=== PATIENT | male | born 2000 | race African-American/Black ===

== ENCOUNTER 2024-09-30 09:34 | Emergency (ER) | payer BC, SELFPAY ==
--- NOTE | ~2024-09-30 | US_ITS ---
EXAMINATION: US SCROTUM HISTORY: left testicular pain and swelling. COMPARISON: There are no prior studies for comparison. FINDINGS: Real-time grayscale ultrasound imaging of the scrotum was performed. Color and spectral Doppler analysis was also performed. RIGHT TESTICLE: The right testis measures 4.4 x 3.2 x 2.9 cm and demonstrates normal homogeneous echotexture. No masses are seen. The right testis demonstrates normal arterial and venous color Doppler and spectral waveforms. RIGHT EPIDIDYMIS: Normal in size, shape, and vascularity. LEFT TESTICLE: The left testis measures 4.2 x 2.5 x 3.6 cm and demonstrates normal homogeneous echotexture. No masses are seen. The left testis demonstrates normal arterial and venous color Doppler and spectral waveforms. LEFT EPIDIDYMIS: Normal in size, shape, and vascularity. There is a 4 mm epididymal head cyst. VARICOCELE: None. HYDROCELE: No significant hydrocele is seen. OTHER COMMENTS: None. US/US scrotum doppler IMPRESSION: 4 mm left epididymal head. Otherwise unremarkable scrotal ultrasound. Electronically signed by: Miguel Olmos MD 09/30/2024 10:38 AM EDT
--- NOTE | ~2024-09-30 | CT_ITS ---
EXAMINATION: CT ABDOMEN PELVIS WITH IV CONTRAST HISTORY: LLQ Pain COMPARISON: There are no prior studies for comparison. TECHNIQUE: CT scan of the abdomen and pelvis was performed following administration of 85 mL Omnipaque 350 using standard departmental protocol. Coronal and sagittal reformatted images were generated and reviewed. Oral contrast material was not administered at the request of the referring physician. This CT exam was performed with one or more of the following dose reduction techniques: automated exposure control, adjustment of the mA and/or kV according to patient size, use of iterative reconstruction technique. DLP: 461 mGy-cm FINDINGS: LOWER CHEST: The visualized lung bases are clear. There is no pleural effusion. CARDIOVASCULATURE: The heart is normal in size. There is no pericardial effusion. LIVER: The liver is normal in size and contour. No liver mass is identified. The hepatic and portal veins are patent. GALLBLADDER / BILE DUCTS: The gallbladder is unremarkable. There is no intra or extrahepatic biliary ductal dilatation. SPLEEN: The spleen is normal in size. No focal splenic lesion is identified. PANCREAS: The pancreas is unremarkable in appearance. ADRENAL GLANDS: Within normal limits. KIDNEYS/RETROPERITONEUM: No renal calculi are identified. There is no hydronephrosis. No renal masses are identified. LYMPH NODES: No abdominal or pelvic lymphadenopathy. VASCULATURE: The abdominal aorta is normal in caliber. MESENTERY/PERITONEUM: No free fluid. No masses. There is no free intraperitoneal gas. STOMACH: The stomach is collapsed, limiting evaluation. SMALL BOWEL: The small bowel is normal in caliber. COLON: The colon is unremarkable. APPENDIX: Normal. URINARY BLADDER/PELVIC ORGANS: The urinary bladder is unremarkable. The prostate is normal in size. BONES / SOFT TISSUES: No suspicious bony or soft tissue abnormalities. CT/CT abdomen pelvis w IV con IMPRESSION: Unremarkable contrast-enhanced CT of the abdomen and pelvis. Electronically signed by: Miguel Olmos MD 09/30/2024 02:14 PM EDT
--- NOTE | ~2024-09-30 | US_ITS ---
EXAMINATION: US SCROTUM HISTORY: left testicular pain and swelling. COMPARISON: There are no prior studies for comparison. FINDINGS: Real-time grayscale ultrasound imaging of the scrotum was performed. Color and spectral Doppler analysis was also performed. RIGHT TESTICLE: The right testis measures 4.4 x 3.2 x 2.9 cm and demonstrates normal homogeneous echotexture. No masses are seen. The right testis demonstrates normal arterial and venous color Doppler and spectral waveforms. RIGHT EPIDIDYMIS: Normal in size, shape, and vascularity. LEFT TESTICLE: The left testis measures 4.2 x 2.5 x 3.6 cm and demonstrates normal homogeneous echotexture. No masses are seen. The left testis demonstrates normal arterial and venous color Doppler and spectral waveforms. LEFT EPIDIDYMIS: Normal in size, shape, and vascularity. There is a 4 mm epididymal head cyst. VARICOCELE: None. HYDROCELE: No significant hydrocele is seen. OTHER COMMENTS: None. US/US scrotum IMPRESSION: 4 mm left epididymal head. Otherwise unremarkable scrotal ultrasound. Electronically signed by: Miguel Olmos MD 09/30/2024 10:38 AM EDT
[2024-09-30 09:39] VITALS: BP 142/51; PULSE 73; RESP 18; TEMP 36.8; O2SAT 99; BMI 29.4
--- NOTE | 2024-09-30 09:39 | ED_ITS ---
HPI - General Adult General Chief complaint: General Medical Stated complaint: Groin pain Time Seen by Provider: 09/30/24 09:37 Source: patient, family and old records reviewed Mode of arrival: ambulatory Limitations: no limitations History of Present Illness ED Provider: KIRILL MENCHACA narrative: 24 yo male healthy no prior surgeries has been working out and noted he thought he pulled this L groin on but now his L testicle is swollen. He notes it is worse when he moves his legs a certain way. He even worked out yesterday but notes it was fine. He has no rash, dysuria, discharge, fevers, n/v/d. Change in stool. He notes it is not worse when he walks. He has no concerning sexual contacts. MD complaint: groin pain Onset (ago): week(s) (1) Location: left (grion) Radiation: non-radiation Severity: moderate Quality: aching Pain Consistency: intermittent Relieving factors: none Exacerbating factors: movement Associated symptoms: denies other symptoms Treatments prior to arrival: none Related Data Previous Rx's ?Medication ?Instructions ?Recorded cyclobenzaprine 10 mg tablet 10 mg PO TID PRN muscle spasm #20 09/30/24 tabs doxycycline hyclate 100 mg capsule 100 mg PO BID 7 days #14 caps 09/30/24 Allergies Allergy/AdvReac Type Severity Reaction Status Date / Time No Known Allergies Allergy Verified 09/30/24 09:40 Review of Systems 2 Review of Systems: Constitutional : No Weight loss, No Fever, No Chills ENT/Mouth : No sore throat, No Rhinorrhea Eyes: No Swelling, No Redness Cardiovascular : No Chest Pain, No SOB, NoEdema Respiratory : No Cough, No Sputum, No Wheezing Gastrointestinal : no Nausea, no Vomiting, no Diarrhea, no abdominal Pain, No Hematochezia, No Melena Genitourinary : No Dysuria, No Urinary Frequency, No Hematuria, No Urgency Musculoskeletal : No joint pain, No Myalgias, No Joint Swelling, pos groin pain Skin : No Skin Lesions, No rash Neuro : No Weakness, No Numbness, No Dizziness, No Headache All other systems reviewed and are negative. [facility] Past Medical History Attestation statement: The following information was validated with the patient. Medical History (Updated 09/30/24 @ 14:23 by Darcy Rubio DO) No pertinent past medical history Social History Social History Alcohol intake: current Alcohol intake frequency: holidays/special occasions only Smoked in Last 30 Days: No Use of substances other than those prescribed or required for medical reasons: Yes Substance Use Type: Marijuana Advance Directives: No Advance Directives Information Provided: Yes Physical Exam ED Vital Signs: Vital Signs - 24 hr 09/30/24 09:39 Temperature 98.2 F Pulse Rate 73 Respiratory Rate 18 Blood Pressure 142/51 H Pulse Oximetry 99 Oxygen Delivery Method Room Air BMI result Body Mass Index 29.4 Appearance: Alert. Oriented X3. No acute distress. Eyes: Pupils equal, round and reactive to light. ENT: Pharynx normal. Neck: Normal inspection. Neck supple. CVS: Normal heart rate and rhythm. Pulses normal. Respiratory: No respiratory distress. Breath sounds normal. Abdomen: Soft and nontender. possible small inguinal hernia felt with cough : no rash, no redness/cellulitis, cord is tender on L side , L testicle upper area feels swollen and painful Skin: Skin warm and dry. Normal skin color. Normal skin turgor. Extremities: No lower extremity edema. No calf ttp Neuro: Oriented X 3. No motor deficit. No sensory deficit. CN2-12 intact Course Course Course Narrative: This is a rapid medical exam performed by Crystal Santa NP: Additional HPI, ROS, PE not included below will be deferred to primary provider. Patient is a 24-year-old male presenting with left groin pain and left testicular swelling since Friday. States he was bench pressing, lifting heavier than normal when symptoms began. Went to urgent care, told he had a groin strain. Area not visualized in triage due to privacy concerns. Plan: UA, CT NG, U/S Reevaluation(s) Reevaluation #1: given US no cause for pain will obtain CT scan for hernia/diverticulitis Medical Decision Making Medical Decision Making MDM Narrative: 24 yo male with groin pain but no associated GI or symptoms and abomen is benign at this time will obtain labs, UA, US to evaluate scrotum as well as possible inguinal hernia. No ischemic symptoms present. Differential Diagnosis Differential Diagnoses: The differential diagnosis associated with the presentation includes STI, orchitis, inguinal hernia, strain Admission/Observation Consideration of admission/observation: Escalation of care including admission/observation considered not toxic, eating and drinking stable for DC will start on doxy in case of inflammation Lab Data MDM Lab Attestation statement: I reviewed the patient's lab results. 09/30/24 09:59 09/30/24 09:59 Labs: Lab Results 09/30/24 09/30/24 Range/Units 09:59 10:03 WBC 10.0 (4.8-10.8) X10*3/uL RBC 5.04 (4.60-5.80) X10*6/uL Hgb 15.5 (14.0-18.0) g/dl Hct 41.6 L (42.0-52.0) % MCV 82.5 (80.0-98.0) fL MCH 30.8 (27.0-33.0) pg MCHC 37.3 H (31.0-36.0) g/dl RDW 13.3 (11.0-16.0) % Plt Count 258 (160-400) X10*3/uL MPV 9.1 L (9.4-12.4) fL Immature Gran % (Auto) 0.4 (0.0-0.4) % Neut % (Auto) 69.0 (45-73) % Lymph % (Auto) 21.4 (20-40) % Shelby % (Auto) 8.5 (2-11) % Eos % (Auto) 0.4 (0-4) % Baso % (Auto) 0.3 (0-2) % Lymph # (Auto) 2.2 (1.2-4.9) X10*3/uL Shelby # (Auto) 0.9 (0.1-1.2) X10*3/uL Eos # (Auto) 0.0 (0.0-0.4) X10*3/uL Baso # (Auto) 0.0 (0.0-0.2) X10*3/uL Abs Immat Gran (auto) 0.04 H (0.00-0.03) X10*3/uL Absolute Neuts (auto) 6.9 (2.0-8.3) x10*3/uL Absolute Nucleated RBC 0.000 (0.0-0.012) X10*3/uL Nucleated RBC % (auto) 0.0 (0.0-0.2) /100WBC Sodium 140 (135-145) mmol/L Potassium 4.6 (3.3-5.1) mmol/L Chloride 106 (96-108) mmol/L Carbon Dioxide 27 (22-29) mmol/L Anion Gap 12 (12-20) BUN 13 (9-16) mg/dL Creatinine 1.33 (0.5-1.4) mg/dL Estim Creat Clear Calc 97.2 Estimated GFR > 60 Random Glucose 93 (60-115) mg/dL Calcium 9.1 (8.4-10.2) mg/dL Total Bilirubin 0.9 (0.0-1.0) mg/dL Direct Bilirubin 0.3 (0.0-0.5) mg/dL AST 37 (5-37) U/L ALT 25 (0-40) U/L Alkaline Phosphatase 158 H (39-117) U/L Total Protein 7.2 (6.5-8.0) g/dL Albumin 4.4 (3.5-5.0) g/dL Urine Color Yellow Urine Appearance Clear Urine pH 7.0 (5.0-9.0) Ur Specific Wilmore 1.025 (1.005-1.025) Urine Protein Negative (Neg-Trace) mg/dL Urine Glucose (UA) Negative (Negative) mg/dL Urine Ketones Trace (Negative) mg/dL Urine Blood Negative (Negative) Urine Nitrite Negative (Negative) Ur Leukocyte Esterase Negative (Negative) Chlam trachomat DNA PCR NOT DETECTED (Not Detect.) N.gonorrhoeae DNA (PCR) NOT DETECTED (Not Detect.) Independent Interpretation I performed an independent interpretation of an: Ultrasound (no cause for pain) and CT Scan (normal ) Radiology Impression Discussion of test interpretation with radiology: I have reviewed the radiologist's reading. Independent Historian Clinical information obtained from an independent historian. History obtained from or confirmed by: Parent Prescription Management I considered prescription management with: Antibiotic and Other Discharge Plan Discharge Clinical Impression: Left groin pain, Pain in left testicle Patient Disposition: Home, Self-Care Instructions: Testicle Pain (ED) Additional Instructions: urine labs STI testing for gonorrhea normal US shows epidymal cyst but no other lesions CT scan shows no hernia is normal at this time rest for 3 days no gym take antibiotics in case of low grade infection in spermatic cord return for any worsening symptoms or concerns. On doxycycline, do not take pills immediately before going to bed and swallow pills with plenty of water. Avoid direct sunlight, iron, antacids, and Pepto Bismol. Call your provider if you develop new ringing in your ears, new problems hearing, dizziness, difficulty swallowing, rash, abdominal discomfort, nausea, or diarrhea.? US/US scrotum IMPRESSION: 4 mm left epididymal head. Otherwise unremarkable scrotal ultrasound. CT/CT abdomen pelvis w IV con IMPRESSION: Unremarkable contrast-enhanced CT of the abdomen and pelvis. Prescriptions: New cyclobenzaprine 10 mg tablet 10 mg PO TID PRN (Reason: muscle spasm) Qty: 20 0RF doxycycline hyclate 100 mg capsule 100 mg PO BID 7 Days Qty: 14 0RF Stand Alone Forms: Work/School Release Print Language: Spanish
[2024-09-30 10:03] LABS: MANUAL DIFF FLAG NO
[2024-09-30 10:04] LABS: Basophils Percent Auto 0.3 % (0-2); Eosinophils Percent Auto 0.4 % (0-4); Hematocrit 41.6 % (42.0-52.0); Hemoglobin 15.5 g/dl (14.0-18.0); Imm Gran Abs Auto 0.04 X10*3/uL (0.00-0.03); Imm Gran Pct Auto 0.4 % (0.0-0.4); Lymphocytes Absolute Auto 2.2 X10*3/uL (1.2-4.9); Lymphocytes Percent Auto 21.4 % (20-40); Mean Corpuscular HGB Conc 37.3 g/dl (31.0-36.0); Mean Corpuscular Hemoglobin 30.8 pg (27.0-33.0); Mean Corpuscular Volume 82.5 fL (80.0-98.0); Mean Platelet Volume 9.1 fL (9.4-12.4); Monocytes Absolute Auto 0.9 X10*3/uL (0.1-1.2); Monocytes Percent Auto 8.5 % (2-11); Neutrophils Absolute Auto 6.9 x10*3/uL (2.0-8.3); Platelet Count 258 X10*3/uL (160-400); Red Blood Count 5.04 X10*6/uL (4.60-5.80); Red Cell Distribution Width 13.3 % (11.0-16.0)
[2024-09-30 10:11] LABS: Appearance Urine Clear; Color Urine Yellow; Glucose Urine UA Negative (Negative); Leukocyte Esterase Urine Negative (Negative); Nitrite Urine Negative (Negative); Specific Gravity - Urine 1.025 (1.005-1.025); Urine Blood Negative (Negative); Urine Ketones Trace mg/dL (Negative); Urine Protein Negative (Neg-Trace)
[2024-09-30 10:20] LABS: Alanine Aminotransferase 25 U/L (0-40); Albumin Level 4.4 g/dL (3.5-5.0); Alkaline Phosphatase 158 U/L (39-117); Anion Gap 12 (12-20); Aspartate Amino Transferase 37 U/L (5-37); Bilirubin Direct 0.3 mg/dL (0.0-0.5); Bilirubin Total 0.9 mg/dL (0.0-1.0); Blood Urea Nitrogen 13 mg/dL (9-16); Calcium 9.1 mg/dL (8.4-10.2); Carbon Dioxide 27 mmol/L (22-29); Chloride 106 mmol/L (96-108); Creatinine Clr Calc Pharmacy 97.2; Estimated Glomerular Filt Rate > 60; Glucose Random 93 mg/dL (60-115); Potassium 4.6 mmol/L (3.3-5.1); Sodium 140 mmol/L (135-145); Total Protein 7.2 g/dL (6.5-8.0)
--- OUTSIDE RECORDS SUMMARY | 2024-09-30 10:57 | XMS_ITS | Clinical Summary ---
Author Organization [facility] ity Address [address] [place] [address] Care Team Providers Care Title 1 Tutor Name Role Phone Unavailable Primary Care Provider Unavailabl e Social History Tobacco Use Types Packs/Day Years Used Date Smoking Tobacco: Never Assessed Sex and Gender Information Value Date Recorded Sex Assigned at Not on file Legal Sex Male 10:49 AM EST Gender Identity Not on file Sexual Orientation Not on file Plan of Treatment Health Maintenance Due Date Last Done Comments HPV Vaccines (1 - Male 3-dos e series) 2014 DTaP,Tdap,and Td Vaccines (1 - Tdap) 2018 Hepatitis B Vaccines (1 of 3 - 19+ 3-dose series) 2018 COVID-19 Vaccine ( - 2023-2 5 season) 2024 Influenza Vaccine (Season Ended) 2025 HIB Vaccines Aged Out No longer eligi ble based on patient's age to complete this topic Hepatitis A Vaccines Aged Out No long er eligible based on patient's age to complete this topic IPV Vaccines Aged Out No longer eligi ble based on patient's age to complete this topic MMR Vaccines Aged Out No longer eligi ble based on patient's age to complete this topic Meningococcal ACWY Vaccine Aged Out N o longer eligible based on patient's age to complete this topic Meningococcal B Vaccine Aged Out No l onger eligible based on patient's age to complete this topic Pneumococcal Vaccine: Pediat rics (0 to 5 Years) and At-Risk Patients (6 to 64 Years) Aged Out No longer eligible b ased on patient's age to complete this topic RSV Immunization Patients Un emily 20 months Aged Out No longer eligible b ased on patient's age to complete this topic Varicella Vaccines Aged Out No longer eligible based on patient's age to complete this topic
[2024-09-30 12:17] LABS: CT PCR NOT DETECTED (Not Detect.); NG PCR NOT DETECTED (Not Detect.)
[2024-09-30 14:39] VITALS: BP 115/58; PULSE 59; RESP 16; TEMP 36.5; O2SAT 100
[2024-09-30 14:48] VITALS: BP 115/58; PULSE 59; RESP 16; TEMP 36.5; O2SAT 100
== END 2024-09-30 14:49 | disposition home or self-care (01) ==
PROVIDERS: Registered Nurse Emergency; Emergency Provider Emergency Medicine
DX: R10.32 Left lower quadrant pain (principal); N50.812 Left testicular pain
CPT/HCPCS: 36415; 74177; 76870; 80048; 80076; 81003; 85025; 87491; 87591; 93975; 99284

== ENCOUNTER → 2024-09-30 09:40 | Outpatient (BNV) | payer BC, SELFPAY | PROVIDERS: Emergency Provider Emergency Medicine; Visit Provider Radiology Diagnostic Radiology | DX: R10.32 Left lower quadrant pain (principal); N50.812 Left testicular pain; N49.2 Inflammatory disorders of scrotum | CPT/HCPCS: 74177; 76870; 93975 ==

== ENCOUNTER 2024-10-19 06:17 | Inpatient (IN) | payer BC, SELFPAY ==
[2024-10-19] VITALS (10 sets, daily range): BP systolic 117–140; BP diastolic 57–68; PULSE 83–97; RESP 12–20; TEMP 36.4–37.2; O2SAT 96–100; BMI 28.2
--- NOTE | ~2024-10-19 | US_ITS ---
EXAMINATION: US SCROTUM HISTORY: Left testicular pain, swelling. COMPARISON: Comparison is made with the prior examination dated 09/30/2024. FINDINGS: Real-time grayscale ultrasound imaging of the scrotum was performed. Color and spectral Doppler analysis was also performed. RIGHT TESTICLE: The right testis measures 5.0 x 2.7 x 3.2 cm and demonstrates normal homogeneous echotexture. No masses are seen. The right testis demonstrates normal arterial and venous color Doppler and spectral waveforms. RIGHT EPIDIDYMIS: Normal in size, shape, and vascularity. LEFT TESTICLE: The left testis measures 4.5 x 3.5 x 3.9 cm and demonstrates normal homogeneous echotexture. No masses are seen. The left testis demonstrates normal arterial and venous spectral waveforms, but appears slightly hypervascular. LEFT EPIDIDYMIS: The left epididymis is enlarged and hyperemic cyst with epididymitis. VARICOCELE: None. HYDROCELE: No significant hydrocele is seen. OTHER COMMENTS: None. US/US scrotum IMPRESSION: Findings consistent with left epididymoorchitis. Electronically signed by: Miguel Olmos MD 10/19/2024 09:20 AM EDT
--- NOTE | ~2024-10-19 | US_ITS ---
EXAMINATION: US SCROTUM HISTORY: Left testicular pain, swelling. COMPARISON: Comparison is made with the prior examination dated 09/30/2024. FINDINGS: Real-time grayscale ultrasound imaging of the scrotum was performed. Color and spectral Doppler analysis was also performed. RIGHT TESTICLE: The right testis measures 5.0 x 2.7 x 3.2 cm and demonstrates normal homogeneous echotexture. No masses are seen. The right testis demonstrates normal arterial and venous color Doppler and spectral waveforms. RIGHT EPIDIDYMIS: Normal in size, shape, and vascularity. LEFT TESTICLE: The left testis measures 4.5 x 3.5 x 3.9 cm and demonstrates normal homogeneous echotexture. No masses are seen. The left testis demonstrates normal arterial and venous spectral waveforms, but appears slightly hypervascular. LEFT EPIDIDYMIS: The left epididymis is enlarged and hyperemic cyst with epididymitis. VARICOCELE: None. HYDROCELE: No significant hydrocele is seen. OTHER COMMENTS: None. US/US scrotum IMPRESSION: Findings consistent with left epididymoorchitis. Electronically signed by: Miguel Olmos MD 10/19/2024 09:20 AM EDT
--- OUTSIDE RECORDS SUMMARY | 2024-10-19 06:51 | XMS_ITS | Clinical Summary ---
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 Emergency [address] [place] [address] Discharge Disposition: Home or Self Care from Last 3 Months Social History Tobacco Use Types Packs/Day Years Used Date Smoking Tobacco: Never Smokeless Tobacco: Never Tobacco Cessation:Counseling Given: Not Answered Sex and Gender Information Value Date Recorded Sex Assigned at Not on file Legal Sex Male 10:49 AM EST Gender Identity Not on file Sexual Orientation Not on file Obstetrics History Last Filed Vital Signs Vital Sign Reading Time Taken Comments Blood Pressure 120/59 10/18/2024 9:38 PM EDT Pulse 77 10/18/2024 9:38 PM EDT Temperature 36.8 ??C (98.2 ??F) 10/18/2024 9:38 PM ED T Respiratory Rate 16 10/18/2024 9:38 PM EDT Oxygen Saturation 99% 10/18/2024 9:38 PM EDT Inhaled Oxygen Concentration - - Weight 91.2 kg (201 lb) 10/18/2024 9:38 PM EDT Height 180.3 cm (5' 11 ) 10/18/2024 9:38 PM EDT Body Mass Index 28.03 10/18/2024 9:38 PM EDT Plan of Treatment Health Maintenance Due Date Last Done Comments HPV Vaccines (1 - Male 3-dos e series) 2014 DTaP,Tdap,and Td Vaccines (1 - Tdap) 2018 Hepatitis B Vaccines (1 of 3 - 19+ 3-dose series) 2018 COVID-19 Vaccine (2023-2 5 season) 2024 Influenza Vaccine (Season Ended) [...] on patient's age to complete this topic Care Teams Cattle Sprayer Relationship Specialty Start Date End Date Physician, No Pcp PCP - General 10/18/24
--- NOTE | 2024-10-19 08:15 | ED_ITS ---
HPI - Male Genitourinary General Chief complaint: Urogenital-Male Stated complaint: groin pain Time Seen by Provider: 10/19/24 07:59 Source: patient and RN notes reviewed Mode of arrival: ambulatory Limitations: no limitations History of Present Illness ED Provider: Priscilla Woodall PA-C [facility] Narrative: This is a 24-year-old male, with no known medical problems, who presents emergency department with concerns of left testicular pain and swelling for the last 2-3 days. Patient was seen here several weeks ago for similar symptoms where he had an ultrasound which revealed a 4 mm left epididymal head, otherwise unremarkable. He also had a CAT scan which was unremarkable. They started him on doxycycline which he states he was taking however states that when he stops taking this, he felt as though his symptoms were starting to return. He denies any fevers or chills. No chest pain or shortness for breath. No abdominal pain or nausea. Denies any dysuria, urinary frequency, urgency. He took ibuprofen last night which provided him with some relief. He is sexually active, denies chance of STIs, also denies any history of anal sex. No other complaints or concerns at this time. MD Complaint: testicle pain and testicle swelling Onset (ago): day(s) Duration: constant and progressively worsening Location: left testicle Radiation: left inguinal region Severity: moderate Severity scale (1-10): 7 Quality: aching Relieving factors: rest Exacerbating factors: palpation Associated symptoms: Reports denies other symptoms Related Data Sexually active: Yes Previous Rx's ?Medication ?Instructions ?Recorded cyclobenzaprine 10 mg tablet 10 mg PO TID PRN muscle spasm #20 09/30/24 tabs doxycycline hyclate 100 mg capsule 100 mg PO BID 7 days #14 caps 09/30/24 Allergies Allergy/AdvReac Type Severity Reaction Status Date / Time No Known Allergies Allergy Verified 10/19/24 06:24 Review of Systems 2 Review of Systems: Yes all other systems are reviewed and are negative Constitutional: Constitutional: Reports as per [facility] Past Medical History Medical History (Updated 10/19/24 @ 13:24 by EARNEST Ahuja) No pertinent past medical history Social History Social History Alcohol intake: current Alcohol intake frequency: holidays/special occasions only Smoked in Last 30 Days: No Use of substances other than those prescribed or required for medical reasons: Yes Substance Use Type: Marijuana Advance Directives: No Advance Directives Information Provided: No Physical Exam 2 Vital Signs: Vital Signs: Last Vital Signs Temp 97.6 F 10/19/24 11:12 Pulse 83 10/19/24 12:01 Resp 12 10/19/24 12:01 BP 122/64 10/19/24 12:01 Pulse Ox 100 10/19/24 12:01 O2 Del Method Room Air 10/19/24 12:01 BMI result Body Mass Index 28.2 Const: General: cooperative, comfortable and no acute distress O rientation/consciousness: patient oriented x3 Limitations: no limitations HEENT: Head: Yes normal to inspection, Yes normocephalic and Yes atraumatic Ears: hearing grossly normal bilaterally General nose exam: Normal external nose present Face and sinus: Yes normal facial exam Mouth: Normal oral and palatal mucosa present, oropharynx normal and moist mucous membranes Throat: Yes posterior oropharynx normal Eyes: General: appearance normal, both eyes and all related structures E yelids: Yes eyelids normal Conjunctivae: conjunctivae normal Sclerae: s clerae normal Pupils: Equal, round and reactive pupils present EOM: EOMs intact bilaterally Neck: Neck: Yes normal visual inspection, Yes full ROM and Yes no lymphadenopathy Lymphatic: no lymphadenopathy noted Chest: Chest palpation & inspection: normal inspection of the chest Resp: Effort & Inspection: normal respiratory effort and able to speak in complete sentences Auscultation: clear to auscultation bilaterally, no crackles, no rales, no rhonchi and no wheezes Cardio: Rate: regular rate Rhythm: regular rhythm Heart sounds: S1 normal heart sound present and S2 normal heart sound present GI: Other: Abdomen is soft and nontender. Inspection: Yes normal to inspection : Other: Testicular exam performed with Amie certified composites technician present at all times. Left testy is indurated, hard, and tender to palpation, slight erythema and warmth. No identifiable abscess palpated. No tenderness extending into the perineum or edema extending into this region. Right testis is soft, nontender. No overlying rashes. Skin: General skin exam: no rashes or lesions noted Trauma: no lacerations or abrasions Wounds: no wounds Neuro: General: patient oriented x3 and moves all extremities Cranial nerves: Yes Equal, round and reactive pupils present Extrem: General: Yes normal to inspection Right upper extremity: normal to inspection Left upper extremity: normal to inspection Right lower extremity: normal to inspection Left lower extremity: normal to inspection Medications Administered Discontinued Medications Generic Name Dose Route Start Last Admin Trade Name Madeleine PRN Reason Stop Dose Admin Acetaminophen 975 mg 10/19/24 10:22 10/19/24 10:45 Acetaminophen 325 Mg Tablet PO 10/19/24 10:23 975 mg ONCE ONE Administration Ceftriaxone Sodium 1 gm 10/19/24 11:36 10/19/24 11:50 Ceftriaxone Sodium 1 Gm Vial IVPUSH 10/19/24 11:37 1 gm ONCE ONE Administration Sodium Chloride 2,259 mls @ 2,259 mls/hr 10/19/24 11:36 10/19/24 11:53 Ns IV 10/19/24 12:35 2,259 mls/hr .Q1H STA Administration Medical Decision Making Medical Decision Making [facility] Narrative: This is a 24-year-old male who presents emergency department with complaints of left testicular pain and swelling for the last several days. On arrival, vital signs within normal limits. He is speaking full sentences under no acute distress. Patient was seen here on September 30, 2024 where he had a 4 mm epididymal head, and a negative CAT scan, and was started on doxycycline. Patient with left-sided testicular induration, and erythema, no significant cellulitis however very firm and tender to palpation. Patient was not evaluated until approximately 9:00 a.m. this morning. He is afebrile, nontoxic appearing, vital signs within normal limits. Will obtain ultrasound and obtain urinalysis. Course: Ultrasound revealing left epididymoorchitis. I discussed this with Dr. Mckeon. I will also order baseline labs to assess for leukocytosis or any electrolyte derangement. Patient remains to be comfortable. 1115- labs returned, [place] [address], with left shift, chemistry revealing slight elevation in T bili at 1.5, alk phos 143, urine does not appear to be infected. Given significant elevation in white blood cell count, I reconsulted with Dr. Mckeon, lactic, blood cultures, IV fluids, and ceftriaxone 1 g IV ordered. 1300 - Dr. Mckeon recommends admission with IV antibiotics, will discussed with hospitalist for transfer of care. Differential Diagnosis Differential Diagnoses: The differential diagnosis associated with the presentation includes Epididymitis, testicular torsion, STI Lab Data [facility] Lab Attestation statement: I reviewed the patient's lab results. See MDM and course 10/19/24 11:09 10/19/24 11:09 Labs: Lab Results 10/19/24 10/19/24 Range/Units 11:09 11:42 WBC 24.9 H (4.8-10.8) X10*3/uL RBC 4.68 (4.60-5.80) X10*6/uL Hgb 14.4 (14.0-18.0) g/dl Hct 38.8 L (42.0-52.0) % MCV 82.9 (80.0-98.0) fL MCH 30.8 (27.0-33.0) pg MCHC 37.1 H (31.0-36.0) g/dl RDW 13.2 (11.0-16.0) % Plt Count 260 (160-400) X10*3/uL MPV 8.8 L (9.4-12.4) fL Immature Gran % (Auto) 0.5 H (0.0-0.4) % Neut % (Auto) 85.9 H (45-73) % Lymph % (Auto) 5.3 L (20-40) % [place] % (Auto) 8.2 (2-11) % Eos % (Auto) 0.0 (0-4) % Baso % (Auto) 0.1 (0-2) % Lymph # (Auto) 1.3 (1.2-4.9) X10*3/uL [place] # (Auto) 2.1 H (0.1-1.2) X10*3/uL Eos # (Auto) 0.0 (0.0-0.4) X10*3/uL Baso # (Auto) 0.0 (0.0-0.2) X10*3/uL Abs Immat Gran (auto) 0.13 H (0.00-0.03) X10*3/uL Absolute Neuts (auto) 21.4 H (2.0-8.3) x10*3/uL Absolute Nucleated RBC 0.000 (0.0-0.012) X10*3/uL Nucleated RBC % (auto) 0.0 (0.0-0.2) /100WBC Smear Tech's Comments VERIFIED Sodium 138 (135-145) mmol/L Potassium 3.9 (3.3-5.1) mmol/L Chloride 105 (96-108) mmol/L Carbon Dioxide 26 (22-29) mmol/L Anion Gap 11 L (12-20) BUN 12 (9-16) mg/dL Creatinine 1.23 (0.5-1.4) mg/dL Estim Creat Clear Calc 106.2 Estimated GFR > 60 Random Glucose 110 (60-115) mg/dL Lactic Acid 0.7 (0.5-2.0) mmol/L Calcium 9.3 (8.4-10.2) mg/dL Total Bilirubin 1.5 H (0.0-1.0) mg/dL AST 30 (5-37) U/L ALT 23 (0-40) U/L Alkaline Phosphatase 143 H (39-117) U/L Total Protein 7.3 (6.5-8.0) g/dL Albumin 4.4 (3.5-5.0) g/dL Urine Color Yellow Urine Appearance Clear Urine pH 5.5 (5.0-9.0) Ur Specific [place] 1.025 (1.005-1.025) Urine Protein Trace (Neg-Trace) mg/dL Urine Glucose (UA) Negative (Negative) mg/dL Urine Ketones Trace (Negative) mg/dL Urine Blood Negative (Negative) Urine Nitrite Negative (Negative) Ur Leukocyte Esterase Negative (Negative) Chlam trachomat DNA PCR NOT DETECTED (Not Detect.) N.gonorrhoeae DNA (PCR) NOT DETECTED (Not Detect.) Radiology Impression Discussion of test interpretation with radiology: I have reviewed the radiologist's reading. Radiologist Impression: FINDINGS: Real-time grayscale ultrasound imaging of the scrotum was performed. Color and spectral Doppler analysis was also performed. RIGHT TESTICLE: The right testis measures 5.0 x 2.7 x 3.2 cm and demonstrates normal homogeneous echotexture. No masses are seen. The right testis demonstrates normal arterial and venous color Doppler and spectral waveforms. RIGHT EPIDIDYMIS: Normal in size, shape, and vascularity. LEFT TESTICLE: The left testis measures 4.5 x 3.5 x 3.9 cm and demonstrates normal homogeneous echotexture. No masses are seen. The left testis demonstrates normal arterial and venous spectral waveforms, but appears slightly hypervascular. LEFT EPIDIDYMIS: The left epididymis is enlarged and hyperemic cyst with epididymitis. VARICOCELE: None. HYDROCELE: No significant hydrocele is seen. OTHER COMMENTS: None. US/US scrotum IMPRESSION: Findings consistent with left epididymoorchitis. Electronically signed by: Miguel Olmos MD 10/19/2024 09:20 AM EDT RP Dictated By: Miguel Olmos MD FINDINGS: LOWER CHEST: The visualized lung bases are clear. There is no pleural effusion. CARDIOVASCULATURE: The heart is normal in size. There is no pericardial effusion. LIVER: The liver is normal in size and contour. No liver mass is identified. The hepatic and portal veins are patent. GALLBLADDER / BILE DUCTS: The gallbladder is unremarkable. There is no intra or extrahepatic biliary ductal dilatation. SPLEEN: The spleen is normal in size. No focal splenic lesion is identified. PANCREAS: The pancreas is unremarkable in appearance. ADRENAL GLANDS: Within normal limits. KIDNEYS/RETROPERITONEUM: No renal calculi are identified. There is no hydronephrosis. No renal masses are identified. LYMPH NODES: No abdominal or pelvic lymphadenopathy. VASCULATURE: The abdominal aorta is normal in caliber. MESENTERY/PERITONEUM: No free fluid. No masses. There is no free intraperitoneal gas. STOMACH: The stomach is collapsed, limiting evaluation. SMALL BOWEL: The small bowel is normal in caliber. COLON: The colon is unremarkable. APPENDIX: Normal. URINARY BLADDER/PELVIC ORGANS: The urinary bladder is unremarkable. The prostate is normal in size. BONES / SOFT TISSUES: No suspicious bony or soft tissue abnormalities. CT/CT abdomen pelvis w IV con IMPRESSION: Unremarkable contrast-enhanced CT of the abdomen and pelvis. Electronically signed by: Miguel Olmos MD 09/30/2024 02:14 PM EDT RP Dictated By: Miguel Olmos MD Critical Care Time Critical Care Time Critical Care Time: Yes Total Critical Care Time: 41 Attestation: I have personally provided critical care time exclusive of time spent on separately billable procedures. Time includes review of lab data, radiology results, discussion with consultants, and monitoring for potential decompensation. Intervention performed as documented. Discharge Plan Discharge Clinical Impression: Epididymoorchitis Prescriptions: No Action cyclobenzaprine 10 mg tablet 10 mg PO TID PRN (Reason: muscle spasm) Qty: 20 0RF doxycycline hyclate 100 mg capsule 100 mg PO BID 7 Days Qty: 14 0RF Print Language: Wolof
[2024-10-19] MEDS: Acetaminophen 325 MG TABLET 975 MG PO (10:45)
[2024-10-19 11:15] LABS: Basophils Percent Auto 0.1 % (0-2); Hematocrit 38.8 % (42.0-52.0); Hemoglobin 14.4 g/dl (14.0-18.0); Imm Gran Abs Auto 0.13 X10*3/uL (0.00-0.03); Imm Gran Pct Auto 0.5 % (0.0-0.4); Lymphocytes Absolute Auto 1.3 X10*3/uL (1.2-4.9); Lymphocytes Percent Auto 5.3 % (20-40); MANUAL DIFF FLAG SCAN; Mean Corpuscular HGB Conc 37.1 g/dl (31.0-36.0); Mean Corpuscular Hemoglobin 30.8 pg (27.0-33.0); Mean Corpuscular Volume 82.9 fL (80.0-98.0); Mean Platelet Volume 8.8 fL (9.4-12.4); Monocytes Absolute Auto 2.1 X10*3/uL (0.1-1.2); Monocytes Percent Auto 8.2 % (2-11); Neutrophils Absolute Auto 21.4 x10*3/uL (2.0-8.3); Neutrophils Percent Auto 85.9 % (45-73); Platelet Count 260 X10*3/uL (160-400); Red Blood Count 4.68 X10*6/uL (4.60-5.80); Red Cell Distribution Width 13.2 % (11.0-16.0); SCAN SMEAR FLAG 1; White Blood Count 24.9 X10*3/uL (4.8-10.8)
[2024-10-19 11:16] LABS: Appearance Urine Clear; Color Urine Yellow; Glucose Urine UA Negative (Negative); Leukocyte Esterase Urine Negative (Negative); Nitrite Urine Negative (Negative); PH 5.5 (5.0-9.0); Specific Gravity - Urine 1.025 (1.005-1.025); Urine Blood Negative (Negative); Urine Ketones Trace mg/dL (Negative); Urine Protein Trace mg/dL (Neg-Trace)
[2024-10-19 11:34] LABS: Alanine Aminotransferase 23 U/L (0-40); Albumin Level 4.4 g/dL (3.5-5.0); Alkaline Phosphatase 143 U/L (39-117); Anion Gap 11 (12-20); Aspartate Amino Transferase 30 U/L (5-37); Bilirubin Total 1.5 mg/dL (0.0-1.0); Blood Urea Nitrogen 12 mg/dL (9-16); Calcium 9.3 mg/dL (8.4-10.2); Carbon Dioxide 26 mmol/L (22-29); Chloride 105 mmol/L (96-108); Creatinine Clr Calc Pharmacy 106.2; Estimated Glomerular Filt Rate > 60; Glucose Random 110 mg/dL (60-115); Potassium 3.9 mmol/L (3.3-5.1); Sodium 138 mmol/L (135-145); Total Protein 7.3 g/dL (6.5-8.0)
[2024-10-19 11:39] LABS: SLIDE REVIEW VERIFIED
[2024-10-19] MEDS: cefTRIAXone sodium 1 GM VIAL IVPUSH (11:50)
[2024-10-19] MEDS: 0.9 % Sodium Chloride 2,259 ML 2259 ML IV (11:53)
--- NOTE | 2024-10-19 11:53 | PC.NURSE ---
20G IV access in Right AC Patient medicated per Mar, NS 0.9& IVF hung per Mar, PT placed on monitor VS updated. Call russo within reach, PT AXO3, PT complains of a discomfort pain 6 out of 10 on pain scale PT request no medications at this time for pain paln of care ongoing.
[2024-10-19 12:06] LABS: Lactic Acid 0.7 mmol/L (0.5-2.0)
[2024-10-19 13:06] LABS: CT PCR NOT DETECTED (Not Detect.); NG PCR NOT DETECTED (Not Detect.)
--- NOTE | 2024-10-19 13:26 | PC.NURSE ---
09.% NS Bolus done at 1326 2 BP's taken PT states his pain is a 6 out of 10 and is very uncomfortable now and would like something for pain Provider Jose C notified, provider to put in new orders for Pain meds at this time plan of care ongoing.
[2024-10-19] MEDS: Ketorolac Tromethamine 15 MG/ML VIAL IVPUSH (13:33)
--- NOTE | 2024-10-19 13:45 | PC.NURSE ---
PT medicated per Mar for pain, blanket given, call russo within reach.
--- NOTE | 2024-10-19 14:47 | PC.NURSE ---
Pain Scale re assess now that patient is awake from nap P states he is at a 3 out of 10 pain scale, Medication showed some effectiveness for patient to get him comfortable.
--- NOTE | 2024-10-19 15:13 | PHA.MEDREC ---
Addendum entered by Jamil Navarro [facility] 10/19/24 15:15: med rec reviewed Original Note: Pharmacy Consult ? Medication Reconciliation Pharmacy has completed the medication reconciliation. Spoke with pt and he confirmed he is not taking any medicaitons at this time.
--- NOTE | 2024-10-19 16:07 | P.HPHOSP_ITS ---
History of Present Illness Date of Service: 10/19/24 Chief Complaint: Scrotal edema 24-year-old male, with no known medical problems, who presents emergency department with concerns of left testicular pain and swelling for the last 2-3 days. Patient was seen here several weeks ago for similar symptoms where he had an ultrasound which revealed a 4 mm left epididymal head, otherwise unremarkable. He also had a CAT scan which was unremarkable. He was started on doxycycline on 09/30/2024 which he states he was taking however states that when he stopped see fell as though the symptoms were starting to return. He denied any fever, chills, nausea, vomiting, diarrhea, recent travel, unprotected sex, anal sex. Denies any dysuria, urinary frequency, urgency. He took ibuprofen for pain relief at home. In the ER he was noted to have an elevated white blood cell count, no fever. All other labs within acceptable limits. Scrotal ultrasound consistent with left epididymyoorchitis. Patient treated with IV Rocephin, IV fluids, Tylenol and Toradol in the ER. He will be admitted for further management and treatment of scrotal edema. Review of Systems 2 Review of Systems: Denies any recent fever chills or decrease in appetite respiratory denies shortness breath or cough cardiovascular no chest pain gastrointestinal denies any dysphagia abdominal pain nausea vomiting or diarrhea genitourinary see HPI musculoskeletal denies any joint pain or swelling neuropsych denies any weakness or seizures all other systems reviewed are negative [facility] Medical History (Updated 10/19/24 @ 13:24 by EARNEST Ahuja) No pertinent past medical history Social History Alcohol intake: current Alcohol intake frequency: holidays/special occasions only Smoked in Last 30 Days: No Use of substances other than those prescribed or required for medical reasons: Yes Substance Use Type: Marijuana Advance Directives: No Advance Directives Information Provided: No Meds Allergies Allergy/AdvReac Type Severity Reaction Status Date / Time No Known Allergies Allergy Verified 10/19/24 06:24 Active Medications: Current Medications Acetaminophen (Acetaminophen 325 Mg Tablet) 975 mg PO Q6H PRN PRN Reason: Pain, Mild 1-3,fever,headache Ceftriaxone Sodium (Ceftriaxone Sodium 1 Gm Vial) 1 gm IVPUSH Q24H KWESI Doxycycline Hyclate 100 mg/ (Sodium Chloride) 250 mls @ 166.67 mls/hr IV Q12H KWESI Ibuprofen (Ibuprofen 400 Mg Tablet) 400 mg PO Q6H KWESI Stop: 10/20/24 06:01 Oxycodone HCl (Oxycodone Hcl Immed Release 5 Mg Tablet) 5 mg PO Q6H PRN PRN Reason: Pain, Severe (Pain Scale 7-10) Sodium Chloride (0.9 % Sodium Chloride Flush 3 Ml Syringe) 3 ml IVFLUSH QSHIFT [facility] Home Medications ?Medication ?Instructions ?Recorded ?Confirmed ?Last Taken ?Type No Known Home Meds 10/19/24 10/19/24 Unknown History Physical Exam 2 Vital Signs and Narrative: Vital Signs: Last Vital Signs Temp 97.6 F 10/19/24 11:12 Pulse 83 10/19/24 13:35 Resp 20 10/19/24 13:35 BP 120/57 L 10/19/24 13:38 Pulse Ox 99 10/19/24 13:35 O2 Del Method Room Air 10/19/24 13:35 BMI result Body Mass Index 28.2 Appearing in no acute distress head is normocephalic atraumatic eyes pupils are PERRLA sclera is anicteric mouth throat mucous membranes are intact and moist neck is supple no lymphadenopathy, no JVD noted lung sounds are clear to auscultation heart regular rate rhythm, clear S1, S2 positive bowel sounds, abdomen is soft, nontender neuro patient is alert x3, no focal deficits Results Labs 10/19/24 11:09 10/19/24 11:09 Labs: Laboratory Results - last 24 hr 10/19/24 10/19/24 11:09 11:42 MCV 82.9 MCH 30.8 MCHC 37.1 H RDW 13.2 Plt Count 260 MPV 8.8 L Immature Gran % (Auto) 0.5 H Neut % (Auto) 85.9 H Lymph % (Auto) 5.3 L [place] % (Auto) 8.2 Eos % (Auto) 0.0 Baso % (Auto) 0.1 Lymph # (Auto) 1.3 [place] # (Auto) 2.1 H Eos # (Auto) 0.0 Baso # (Auto) 0.0 Abs Immat Gran (auto) 0.13 H Absolute Neuts (auto) 21.4 H Absolute Nucleated RBC 0.000 Nucleated RBC % (auto) 0.0 Smear Tech's Comments VERIFIED Anion Gap 11 L Estim Creat Clear Calc 106.2 Estimated GFR > 60 Random Glucose 110 Lactic Acid 0.7 Calcium 9.3 Total Bilirubin 1.5 H AST 30 ALT 23 Alkaline Phosphatase 143 H Total Protein 7.3 Albumin 4.4 Urine Color Yellow Urine Appearance Clear Urine pH 5.5 Ur Specific [place] 1.025 Urine Protein Trace Urine Glucose (UA) Negative Urine Ketones Trace Urine Blood Negative Urine Nitrite Negative Ur Leukocyte Esterase Negative Chlam trachomat DNA PCR NOT DETECTED N.gonorrhoeae DNA (PCR) NOT DETECTED Imaging Radiologist's Impressions: Impressions Scrotum Ultrasound 10/19/24 07:44 IMPRESSION: Findings consistent with left epididymoorchitis. Electronically signed by: Miguel Olmos MD 10/19/2024 09:20 AM EDT Assessment and Plan (1) Epididymoorchitis: Status: Acute Plan 24-year-old man treated with epididymitis Epididymitis Scrotal ultrasound showing left epididymoorchitis Sexually active however chlamydia and gonorrhea negative Will treat with Rocephin and doxycycline Pain management Neurology consultation Leukocytosis Secondary to above Treat with antibiotics and monitor Marijuana use Supportive care DVT prophylaxis with early ambulation Full code Quality Stroke Does the patient have a stroke diagnosis?: No VTE Prior VTE?: No VTE Risk Level:: Medical - low VTE Device Contraindication: Treatment Not Indicated VTE Drug Contraindication: Treatment Not Indicated
[2024-10-19] MEDS: oxyCODONE HCl Immed Release 5 MG TABLET PO (16:16)
[2024-10-19] MEDS: Doxycycline Hyclate 100 MG in 0.9 % Sodium Chloride 250 ML 166.67 MG IV (17:16)
[2024-10-19] MEDS: ondansetron HCL 4 MG/2 ML VIAL IVPUSH (18:11)
--- NOTE | 2024-10-19 18:21 | P.CNUR_ITS ---
History of Present Illness Consult details Consult date: 10/19/24 Reason for consult: other (Left left testicular swelling and pain) Narrative: 24-year-old male, presents emergency department with concerns of left testicular pain and swelling for the last 2-3 days. Patient was seen here several weeks ago for similar symptoms where he had an ultrasound which revealed a 4 mm cyst left epididymal head, otherwise unremarkable. He also had a CAT scan which was unremarkable. They started him on doxycycline which he states he was taking however states that when he stops taking this, he felt as though his symptoms were starting to return. He denies any fevers or chills. Denies any dysuria, urinary frequency, urgency. He took ibuprofen last night which provided him with some relief. He is sexually active, denies any history of anal sex. GC and chlamydia urine screen was checked on previous ER visit and came back negative. WBC count has increased to 24.9. Review of Systems 2 Review of Systems: Yes all other systems are reviewed and are negative Constitutional: Constitutional: Reports no additional constitutional complaints Eyes: Eyes: Reports no additional eye complaints ENT: Reports system reviewed and no additional complaints, except as documented Cardiovascular: Cardiovascular: Reports no additional cardiovascular complaints Respiratory: Respiratory: Reports no additional respiratory complaints Gastrointestinal: Gastrointestinal: Reports no additional gastrointestinal complaints Genitourinary: Genitourinary: Reports as per HPI Musculoskeletal: Musculoskeletal: Reports no additional musculoskeletal complaints Integumentary/Breasts: Skin/Breast: Reports system reviewed and no additional complaints, except as docu Neurologic: Reports system reviewed and no additional complaints, except as documented Psychiatric: Psychiatric: Reports no additional psychiatric complaints Endocrine: Endocrine: Reports no additional endocrine complaints Hematologic/Lymphatic: Hematologic/Lymphatic: Reports no additional hematologic/lymphatic complaints Allergic/Immunologic: Allergic/Immunologic: Reports no additional allergic/immunologic complaints [facility] Past Medical History Medical History No pertinent past medical history Social History Social History Household Members: None Household Members Other:: family Housing: Apartment Do you presently have visiting nurse or other home services: No Alcohol intake: current Alcohol intake frequency: holidays/special occasions only Patient Tobacco Use Status: Never used Tobacco e-Cigarette/Vaping Use: Never Used Substance Use Type: Marijuana service: No Meds Allergies Allergy/AdvReac Type Severity Reaction Status Date / Time No Known Allergies Allergy Verified 10/19/24 06:24 Active Medications: Current Medications Acetaminophen (Acetaminophen 325 Mg Tablet) 975 mg PO Q6H PRN PRN Reason: Pain, Mild 1-3,fever,headache Ceftriaxone Sodium (Ceftriaxone Sodium 1 Gm Vial) 1 gm IVPUSH Q24H KW[facility]I Doxycycline Hyclate 100 mg/ (Sodium Chloride) 250 mls @ 166.67 mls/hr IV Q12H [facility] Last Admin: 10/19/24 17:16 Dose: 166.67 mls/hr Ibuprofen (Ibuprofen 400 Mg Tablet) 400 mg PO Q6H [facility] Stop: 10/20/24 06:01 Lorazepam (Lorazepam 0.5 Mg Tablet) 0.5 mg PO Q8H PRN PRN Reason: Anxiety Morphine Sulfate (Morphine Sulfate 2 Mg/Ml Cartridge) 0.5 mg IVPUSH Q4H PRN; Protocol PRN Reason: Pain, Severe (Pain Scale 7-10) Ondansetron HCl (Ondansetron Hcl 4 Mg/2 Ml Vial) 4 mg IVPUSH Q6H PRN PRN Reason: Nausea and Vomiting Last Admin: 10/19/24 18:11 Dose: 4 mg Oxycodone HCl (Oxycodone Hcl Immed Release 5 Mg Tablet) 5 mg PO Q6H PRN PRN Reason: Pain, Severe (Pain Scale 7-10) Last Admin: 10/19/24 16:16 Dose: 5 mg Sodium Chloride (0.9 % Sodium Chloride Flush 3 Ml Syringe) [facility] Admin: 10/19/24 17:03 Dose: Not Given Physical Exam 2 Vital Signs: Vital Signs: Last Vital Signs Temp 97.6 F 10/19/24 11:12 Pulse 97 10/19/24 17:20 Resp 16 10/19/24 17:20 BP 128/61 10/19/24 17:20 Pulse Ox 99 10/19/24 17:20 O2 Del Method Room Air 10/19/24 17:20 BMI result Body Mass Index 28.2 Const: General: healthy appearing, no acute distress and well developed O rientation/consciousness: patient oriented x3 HEENT: Head: Yes normocephalic and Yes atraumatic Eyes: Conjunctivae: conjunctivae normal Neck: Neck: Yes normal visual inspection Chest: Chest palpation & inspection: normal inspection of the chest Resp: Effort & Inspection: normal respiratory effort GI: Inspection: Yes normal to inspection Palpation (GI): Soft to palpation : Penis: normal penis Scrotum: other (scrotal swelling, tender to palp, clinically no evidence of abscess) Neuro: General: patient oriented x3 Extrem: General: No pedal edema Psych: Appearance: grossly normal Affect: normal affect Results Labs 10/20/24 08:34 10/20/24 05:56 Labs: Abnormal lab results 10/19/24 Range/Units 11:09 WBC 24.9 H (4.8-10.8) X10*3/uL Hct 38.8 L (42.0-52.0) % MCHC 37.1 H (31.0-36.0) g/dl MPV 8.8 L (9.4-12.4) fL Immature Gran % (Auto) 0.5 H (0.0-0.4) % Neut % (Auto) 85.9 H (45-73) % Lymph % (Auto) 5.3 L (20-40) % [place] # (Auto) 2.1 H (0.1-1.2) X10*3/uL Abs Immat Gran (auto) 0.13 H (0.00-0.03) X10*3/uL Absolute Neuts (auto) 21.4 H (2.0-8.3) x10*3/uL Anion Gap 11 L (12-20) Total Bilirubin 1.5 H (0.0-1.0) mg/dL Alkaline Phosphatase 143 H (39-117) U/L Short CBC 10/19/24 Range/Units 11:09 WBC 24.9 H (4.8-10.8) X10*3/uL Hgb 14.4 (14.0-18.0) g/dl Hct 38.8 L (42.0-52.0) % Plt Count 260 (160-400) X10*3/uL BMP 10/19/24 11:09 Sodium 138 Potassium 3.9 Chloride 105 Carbon Dioxide 26 BUN 12 Creatinine 1.23 Calcium 9.3 Liver Function 10/19/24 Range/Units 11:09 Total Bilirubin 1.5 H (0.0-1.0) mg/dL AST 30 (5-37) U/L ALT 23 (0-40) U/L Alkaline Phosphatase 143 H (39-117) U/L Albumin 4.4 (3.5-5.0) g/dL Urine 10/19/24 Range/Units 11:09 Urine Color Yellow Urine Appearance Clear Urine pH 5.5 (5.0-9.0) Ur Specific [place] 1.025 (1.005-1.025) Urine Protein Trace (Neg-Trace) mg/dL Urine Glucose (UA) Negative (Negative) mg/dL Imaging Additional studies: Date of Service: 10/19/24 EXAMINATION: US SCROTUM HISTORY: Left testicular pain, swelling. COMPARISON: Comparison is made with the prior examination dated 09/30/2024. FINDINGS: Real-time grayscale ultrasound imaging of the scrotum was performed. Color and spectral Doppler analysis was also performed. RIGHT TESTICLE: The right testis measures 5.0 x 2.7 x 3.2 cm and demonstrates normal homogeneous echotexture. No masses are seen. The right testis demonstrates normal arterial and venous color Doppler and spectral waveforms. RIGHT EPIDIDYMIS: Normal in size, shape, and vascularity. LEFT TESTICLE: The left testis measures 4.5 x 3.5 x 3.9 cm and demonstrates normal homogeneous echotexture. No masses are seen. The left testis demonstrates normal arterial and venous spectral waveforms, but appears slightly hypervascular. LEFT EPIDIDYMIS: The left epididymis is enlarged and hyperemic cyst with epididymitis. VARICOCELE: None. HYDROCELE: No significant hydrocele is seen. Assessment and Plan (1) Epididymoorchitis: Status: Acute Plan Left epididymo-orchitis- no evidence of abscess collection. Continue IV antibiotics. Outpatient fu in 2-3 weeks Procedures Date of Service Date of Service: 10/26/24
[2024-10-19] MEDS: Ibuprofen 400 MG TABLET PO (18:22)
--- NOTE | 2024-10-19 18:31 | PC.NURSE ---
report recieved from Florencia SOLO.
--- NOTE | 2024-10-19 19:32 | PC.NURSE ---
this rn assumed care of pt, pt resting in stretcher, no acute distress noted, offers no complaints at this time
[2024-10-20 01:16] VITALS: BP 106/72; PULSE 76; RESP 16; TEMP 37; O2SAT 96
[2024-10-20 01:35] VITALS: BMI 28.2
[2024-10-20 01:53] VITALS: BP 138/70; PULSE 72; RESP 18; TEMP 37.2; O2SAT 97
[2024-10-20] MEDS: Doxycycline Hyclate 100 MG in 0.9 % Sodium Chloride 250 ML 166.67 MG IV (04:11)
[2024-10-20] MEDS: Ibuprofen 400 MG TABLET PO (05:05)
[2024-10-20 07:10] LABS: Anion Gap 8 (12-20); Blood Urea Nitrogen 10 mg/dL (9-16); Carbon Dioxide 25 mmol/L (22-29); Chloride 112 mmol/L (96-108); Creatinine Clr Calc Pharmacy 117.7; Estimated Glomerular Filt Rate > 60; Glucose Random 73 mg/dL (60-115); Potassium 3.2 mmol/L (3.3-5.1); Sodium 142 mmol/L (135-145)
[2024-10-20 07:21] LABS: Calcium 7.9 mg/dL (8.4-10.2)
[2024-10-20 07:53] VITALS: BP 110/53; PULSE 65; RESP 16; TEMP 36.9; O2SAT 96
[2024-10-20] MEDS: 0.9 % Sodium Chloride Flush 3 ML SYRINGE IVFLUSH (08:17)
--- NOTE | 2024-10-20 09:26 | PM.DS ---
DS: Providers Provider Date of Service: 10/20/24 Date of admission: 10/19/24 13:34 Date of discharge: 10/20/24 Primary care physician: Unknown Physician Consults: 10/19/24 16:10 Consult to Urology Routine Consulting Provider: [facility] Reason for consultation: Epididymitis DS: Diagnosis Discharge Diagnosis (1) Epididymoorchitis: Status: Acute DS: Summary Hospital Course Hospital Course: 24-year-old male, with no known medical problems, who presents emergency department with concerns of left testicular pain and swelling for the last 2-3 days. Patient was seen here several weeks ago for similar symptoms where he had an ultrasound which revealed a 4 mm left epididymal head, otherwise unremarkable. He also had a CAT scan which was unremarkable. He was started on doxycycline on 09/30/2024 which he states he was taking however states that when he stopped see fell as though the symptoms were starting to return. He denied any fever, chills, nausea, vomiting, diarrhea, recent travel, unprotected sex, anal sex. Denies any dysuria, urinary frequency, urgency. He took ibuprofen for pain relief at home. In the ER he was noted to have an elevated white blood cell count, no fever. All other labs within acceptable limits. Scrotal ultrasound consistent with left epididymyoorchitis. Patient treated with IV Rocephin, IV fluids, Tylenol and Toradol in the ER. He will be admitted for further management and treatment of scrotal edema. Epididymitis Scrotal ultrasound showing left epididymoorchitis Sexually active however chlamydia and gonorrhea negative Treated with IV Rocephin and doxycycline Seen and evaluated by Urology, agreed with antibiotic course, may follow up with Urology if recurrence Leukocytosis Secondary to above Marijuana use Supportive care Time Attestation Discharge Coordination Time (in mins): 40 Quality: Safe Use of Opioids Does Pt have an Active Cancer Diagnosis on the Problem List?: No Quality: Stroke Does the patient have a stroke diagnosis?: No Physical Exam Vital Signs: Vital Signs: Last Vital Signs Temp 98.4 F 10/20/24 07:53 Pulse 65 10/20/24 07:53 Resp 16 10/20/24 07:53 BP 110/53 L 10/20/24 07:53 Pulse Ox 96 10/20/24 07:53 O2 Del Method Room Air 10/20/24 07:53 BMI result Body Mass Index 28.2 Appearing in no acute distress head is normocephalic atraumatic eyes pupils are PERRLA sclera is anicteric mouth throat mucous membranes are intact and moist neck is supple no lymphadenopathy, no JVD noted lung sounds are clear to auscultation heart regular rate rhythm, clear S1, S2 positive bowel sounds, abdomen is soft, nontender neuro patient is alert x3, no focal deficits Mild scrotal edema DS: Data Data Completed and Pending Labs on day of discharge: Laboratory Results - last 24 hr 10/19/24 10/19/24 10/20/24 11:09 11:42 05:56 WBC 24.9 H RBC 4.68 Hgb 14.4 Hct 38.8 L MCV 82.9 MCH 30.8 MCHC 37.1 H RDW 13.2 Plt Count 260 MPV 8.8 L Immature Gran % (Auto) 0.5 H Neut % (Auto) 85.9 H Lymph % (Auto) 5.3 L [place] % (Auto) 8.2 Eos % (Auto) 0.0 Baso % (Auto) 0.1 Lymph # (Auto) 1.3 [place] # (Auto) 2.1 H Eos # (Auto) 0.0 Baso # (Auto) 0.0 Abs Immat Gran (auto) 0.13 H Absolute Neuts (auto) 21.4 H Absolute Nucleated RBC 0.000 Nucleated RBC % (auto) 0.0 Smear Tech's Comments VERIFIED Sodium 138 142 Potassium 3.9 3.2 L Chloride 105 112 H Carbon Dioxide 26 25 Anion Gap 11 L 8 L BUN 12 10 Creatinine 1.23 1.11 Estim Creat Clear Calc 106.2 117.7 Estimated GFR > 60 > 60 Random Glucose 110 73 Lactic Acid 0.7 Calcium 9.3 7.9 L D Total Bilirubin 1.5 H AST 30 ALT 23 Alkaline Phosphatase 143 H Total Protein 7.3 Albumin 4.4 Urine Color Yellow Urine Appearance Clear Urine pH 5.5 Ur Specific [place] 1.025 Urine Protein Trace Urine Glucose (UA) Negative Urine Ketones Trace Urine Blood Negative Urine Nitrite Negative Ur Leukocyte Esterase Negative Chlam trachomat DNA PCR NOT DETECTED N.gonorrhoeae DNA (PCR) NOT DETECTED Discharge Plan Discharge Anticipated Discharge Date/Time: 10/20/24 09:23 Patient Disposition: Home, Self-Care Discharge Diagnosis: Epididymitis/Epididymoorchitis Leukocytosis Referrals: Giovanni Coe MD [Physician] - None Discharge Medications: New cefuroxime axetil 500 mg tablet 500 mg PO BID Qty: 18 0RF doxycycline hyclate 100 mg capsule 100 mg PO BID Qty: 18 0RF Discharge Orders: Discharge Order (Routine); Ordered 10/20/24 Ordered By: Genet Bennett Diet: Advance to usual diet Activity on Discharge: As tolerated Stand Alone Forms: Patient Portal Discharge page Print Language: Liberian Care Plan Goals: Complete antibiotic course May use warm compress for pain and swelling [id number] Ibuprofen or Tylenol for pain Health Concerns: Epididymitis/Epididymoorchitis Leukocytosis Plan of Treatment: Follow-up with primary care provider as needed Follow up with Urology as needed Take all medications as provided Assessment: See discharge summary
[2024-10-20 10:01] LABS: Basophils Percent Auto 0.2 % (0-2); Eosinophils Absolute Auto 0.1 X10*3/uL (0.0-0.4); Eosinophils Percent Auto 0.3 % (0-4); Hematocrit 35.9 % (42.0-52.0); Hemoglobin 13.2 g/dl (14.0-18.0); Imm Gran Pct Auto 0.8 % (0.0-0.4); Lymphocytes Absolute Auto 2.5 X10*3/uL (1.2-4.9); Lymphocytes Percent Auto 10.7 % (20-40); MANUAL DIFF FLAG SCAN; Mean Corpuscular HGB Conc 36.8 g/dl (31.0-36.0); Mean Corpuscular Hemoglobin 30.6 pg (27.0-33.0); Mean Corpuscular Volume 83.1 fL (80.0-98.0); Monocytes Percent Auto 8.5 % (2-11); Neutrophils Absolute Auto 18.9 x10*3/uL (2.0-8.3); Neutrophils Percent Auto 79.5 % (45-73); Platelet Count 250 X10*3/uL (160-400); Red Blood Count 4.32 X10*6/uL (4.60-5.80); Red Cell Distribution Width 12.9 % (11.0-16.0); SCAN SMEAR FLAG 1; White Blood Count 23.8 X10*3/uL (4.8-10.8)
[2024-10-20] MEDS: Potassium Chloride ER 20 MEQ TAB.ER.PRT 40 MEQ PO (10:25)
--- NOTE | 2024-10-20 10:39 | MHC.CM.PN ---
EMR REVIEWED, PT W/EPIDIDYMOOCHITIS/ FAILED OUTPT TX, CM MET W/PT WHO REPORTS HE LIVES W/HIS MOM, IS FULLY INDEP, NO DME/SERVICES, PT REPORTS HE DOES NOT HAVE A PCP AND CM PROVIDED PT W/[facility] PROVIDER LIST/PAMPHELT, PT'S GOAL FOR DC IS HOME. PT EDUCATED ON AND DECLINES TO COMPLETE A HCP. ANTIC POSSIBLE DC LATER TODAY HOME SELF CARE, FAMILY AT BEDSIDE FOR TRANSPORT
[2024-10-20 10:40] LABS: SLIDE REVIEW VERIFIED
== END 2024-10-20 11:01 | disposition home or self-care (01) | DRG 501 ==
LOC: HO.ED 10:02 → HO.EDOVER 13:58 → HO.S3 10-20 00:39
PROVIDERS: Physician Assistant Medical; Admitting Provider Internal Medicine; Emergency Provider Emergency Medicine Emergency Medical Services; Visit Provider Nurse Practitioner Acute Care
DX: N45.3 Epididymo-orchitis (principal)
CPT/HCPCS: 36415; 76870; 80048; 80053; 81003; 83605; 85025; 87040; 87491; 87591; 99285; J0696; J1271; J1885; J2405

== ENCOUNTER → 2024-10-19 08:28 | Outpatient (BNV) | payer BC, SELFPAY | PROVIDERS: Emergency Provider Emergency Medicine Emergency Medical Services; Visit Provider Radiology Diagnostic Radiology | DX: N45.1 Epididymitis (principal) | CPT/HCPCS: 93975 ==

== ENCOUNTER → 2024-10-19 13:34 | Outpatient (BNV) | payer BC, SELFPAY | PROVIDERS: Admitting Provider Internal Medicine; Emergency Provider Emergency Medicine Emergency Medical Services; Visit Provider Urology | DX: N45.3 Epididymo-orchitis (principal) | CPT/HCPCS: 99254 ==

== ENCOUNTER → 2024-10-19 13:34 | Outpatient (BNV) | payer BC, SELFPAY | PROVIDERS: Admitting Provider Internal Medicine; Emergency Provider Emergency Medicine Emergency Medical Services; Visit Provider Nurse Practitioner Acute Care | DX: N45.3 Epididymo-orchitis (principal) | CPT/HCPCS: 99223; 99239 ==

== ENCOUNTER 2024-12-02 07:52 | Outpatient (AMB) | payer BC, SELFPAY ==
--- NOTE | 2024-12-02 07:54 | A.OFFVIS_ITS ---
Intake Visit Reasons: epididymyoorchitis Intake Note: patient presents for follow up on Epididymoorchitis: Urology meds: none Blood thinner : none Recruitment Officer Required: No Accompanied by: Self / Same As Patient Allergies No Known Allergies Allergy (Verified 12/02/24 07:56) HPI Comments Details: 12/02/24-- Ralph is a 24-year-old male who was initially evaluated on 10/19/2024 for left testicular pain, ultrasound and clinic exam findings consistent with left epididymo-orchitis. He was given antibiotics. Today he states that the pain has resolved. I have discussed repeat ultrasound and we have discussed the importance of using a condom with intercourse. Urinalysis today is negative. Examination swelling resolved testicles nontender. Urology Consult: 10/19/24--24-year-old male, presents emergency department with concerns of left testicular pain and swelling for the last 2-3 days. Patient was seen here several weeks ago for similar symptoms where he had an ultrasound which revealed a 4 mm cyst left epididymal head, otherwise unremarkable. He also had a CAT scan which was unremarkable. They started him on doxycycline which he states he was taking however states that when he stops taking this, he felt as though his symptoms were starting to return. He denies any fevers or chills. Denies any dysuria, urinary frequency, urgency. He took ibuprofen last night which provided him with some relief. He is sexually active, denies any history of anal sex. GC and chlamydia urine screen was checked on previous ER visit and came back negative. WBC count has increased to 24.9. [facility] Medical History No pertinent past medical history Social History Household Members: None Household Members Other:: family Housing: Apartment Do you presently have visiting nurse or other home services: No Alcohol intake: current Alcohol intake frequency: holidays/special occasions only Patient Tobacco Use Status: Never used Tobacco e-Cigarette/Vaping Use: Never Used Substance Use Type: Marijuana service: No Review of Systems Const All systems reviewed & are unremarkable except as noted in HPI and below Reports no additional complaints Eyes Reports no additional complaints ENT Reports no additional complaints Card Reports no additional complaints Resp Reports no additional complaints GI Reports no additional complaints Reports as per HPI Musc Reports no additional complaints Skin/Breast Reports system reviewed and no additional complaints, except as documented Neuro Reports no additional complaints Psych Reports no additional complaints Endo Reports no additional complaints Link/Lymph Reports no additional complaints Aller/Immun Reports no additional complaints Physical Exam Other: Examination swelling resolved testicles nontender. Scrotum: scrotum normal Testes: Testes normal Assessment & Plan Assessment & Plan (1) Epididymoorchitis: Code(s): N45.3 - Epididymo-orchitis Category: Medical Plan US scrotum doppler Orders: Orders US scrotum doppler 12/02/24 N45.3 - Epididymo-orchitis Patient Instructions: The patient had an opportunity to ask questions regarding treatment plan. The patient expressed understanding and agreement with the above treatment plan. The patient is aware they should contact our office by phone for worsening of their current condition or the appearance of new symptoms. Compliance is encouraged with any medications and followup testing that is ordered. It is a privilege to be allowed the opportunity to participate in the urologic care of your patient. If you have any questions or concerns regarding treatment for the above conditions please do not hesitate to contact me. The office telephone contact is [phone]. This note is constructed in part using voice recognition software. While every effort has been made to ensure accuracy tooling inspector errors may have been included. Yours sincerely, Daljit Swann MD Coding Level of Care Code Est Pt Level 3 (46129) Diagnoses Epididymoorchitis N45.3
--- OUTSIDE RECORDS SUMMARY | 2024-12-02 07:54 | XMS_ITS | Clinical Summary ---
Author Organization [facility] Address [address] [place] [address] Phone Care Team Providers Care Track Layer Head Name Role Phone Physician, No Pcp Primary Care Provider Unavaila ble Allergies No known active allergies Encounters Date Type Department Care Team Description 10/18/2024 9:24 PM EDT - 10/18/2024 10:26 PM EDT Emergency [facility] Emergency [address] [place] [address] Discharge Disposition: Home or Self [...] 77 10/18/2024 9:38 PM EDT Temperature 36.8 C (98.2 F) 10/18/2024 9:38 PM EDT Respiratory Rate 16 10/18/2024 9:38 PM EDT [...] Vaccine ( - 2023-2 5 season) 2024 Depression Screening 05/12/2024 Influenza Vaccine (#1) 2025 HIB Vaccines Aged Out No longer [...] 5 Years) and At-Risk Patients (6 to 49 Years) Aged Out No longer eligible b ased on patient's age to complete this topic RSV Immunization Patients Un emily 20 months Aged Out No longer eligible b ased on patient's age to complete this topic Varicella Vaccines Aged Out No longer eligible based on patient's age to complete this topic Care Teams Track Layer Head Relationship Specialty Start Date End Date Physician, No Pcp PCP - General 10/18/24
== END 2024-12-02 08:39 | disposition home or self-care (01) ==
LOC: HO.HUSH 07:52
PROVIDERS: Visit Provider Urology
DX: N45.3 Epididymo-orchitis (principal)
CPT/HCPCS: 99213

== ENCOUNTER 2025-01-18 15:35 | Outpatient (REF) | payer BC, SELFPAY ==
--- NOTE | ~2025-01-18 | US_ITS ---
CLINICAL HISTORY: epididymo orchitis US scrotum with Doppler Comparison: US/SR - US SCROTUM - 10/19/24 08:44 EDT Technique: Real time sonographic imaging, including color Doppler and spectral analysis, was performed by the brick shader. Multiple promotional representative static images were saved for review. Findings: Right testicle is normal in size and echotexture, 5.0 x 2.3 x 3.5 cm. No intratesticular lesion. Stable punctate calcification. Left testicle is normal in size and echotexture, 4.0 x 2.0 x 3.4 cm. No intratesticular lesion. Stable punctate calcification. Mildly increased vascular flow of bilateral testes, symmetric, normal arterial and venous spectral tracing of testicular parenchyma. Unremarkable epididymides, no epididymal hyperemia. Small left epididymal cyst 2-3 mm, of doubtful clinical significance. No hydroceles or varicoceles. Impression: Mildly hyperemic testicles bilaterally, uncertain etiology, may be related to environmental or lifestyle factors, symmetric isolated orchitis is unusual and felt to be less likely but can not be entirely excluded, please correlate clinically. This document has been electronically signed by: Karen Loja MD on 01/19/2025 14:44:47
--- OUTSIDE RECORDS SUMMARY | 2025-01-18 17:43 | XMS_ITS | Clinical Summary ---
Author Organization [facility] Address [address] [place] [address] Phone Care Team Providers Care Coarse Wire Drawer Name Role Phone Physician, No Pcp Primary Care Provider Unavaila ble Allergies No known active allergies Encounters Date Type Department Care Team Description 10/18/2024 9:24 PM EDT - 10/18/2024 10:26 PM EDT Emergency [facility] Emergency [address] [place] [address] Discharge Disposition: Home or Self [...] age to complete this topic Care Teams Coarse Wire Drawer Relationship Specialty Start Date End Date Physician, No Pcp PCP - General 10/18/24
== END 2025-01-18 15:36 | disposition home or self-care (01) ==
LOC: HO.US 15:35
PROVIDERS: Visit Provider Urology
DX: N45.3 Epididymo-orchitis (principal)
CPT/HCPCS: 76870; 93975

== ENCOUNTER → 2025-01-18 15:44 | Outpatient (BNV) | payer BC, SELFPAY | PROVIDERS: Visit Provider Radiology Diagnostic Radiology | DX: N45.3 Epididymo-orchitis (principal) | CPT/HCPCS: 76870 ==

== ENCOUNTER 2025-02-17 08:18 | Outpatient (AMB) | payer BC, SELFPAY ==
--- NOTE | 2025-02-17 08:18 | MHC.OFFVIS ---
Intake Visit Reasons: 11w/US Intake Note: Patient presents today via telehealth for 11w/US 01/19 Scrotum US Urology Medication:None Blood Thinner:None Antibiotic Allergies:None Engraver Set Up Operator Required: No Accompanied by: Self / Same As Patient Allergies No Known Allergies Allergy (Verified 02/17/25 08:18) Medication List - Last Reconciled 02/17/25 by Daljit Swann MD No Known Home Meds HPI Comments Details: 02/17/25--Ralph is a 24 year old male who was initially 10/19/2024 for left testicular pain ultrasound of the scrotum at that time was consistent with left epididymitis orchitis treated with antibiotics. He presents as a telehealth follow-up with repeat ultrasound to review. The patient reports he is doing wound denies any testicular pain. Ultrasound findings are clinically not significant. Testicles are within normal limits. Follow-up PRN 01/19/25--US - Scrotum--Right testicle is normal in size and echotexture, 5.0 x 2.3 x 3.5 cm. No intratesticular lesion. Stable punctate calcification. Left testicle is normal in size and echotexture, 4.0 x 2.0 x 3.4 cm. No intratesticular lesion. Stable punctate calcification. Mildly increased vascular flow of bilateral testes, symmetric, normal arterial and venous spectral tracing of testicular parenchyma. 12/02/24-- Ralph is a 24-year-old male who was initially evaluated on 10/19/2024 for left testicular pain, ultrasound and clinic exam findings consistent with left epididymo-orchitis. He was given antibiotics. Today he states that the pain has resolved. I have discussed repeat ultrasound and we have discussed the importance of using a condom with intercourse. Urinalysis today is negative. Examination swelling resolved testicles nontender. Urology Consult: 10/19/24--24-year-old male, presents emergency department with concerns of left testicular pain and swelling for the last 2-3 days. Patient was seen here several weeks ago for similar symptoms where he had an ultrasound which revealed a 4 mm cyst left epididymal head, otherwise unremarkable. He also had a CAT scan which was unremarkable. They started him on doxycycline which he states he was taking however states that when he stops taking this, he felt as though his symptoms were starting to return. He denies any fevers or chills. Denies any dysuria, urinary frequency, urgency. He took ibuprofen last night which provided him with some relief. He is sexually active, denies any history of anal sex. GC and chlamydia urine screen was checked on previous ER visit and came back negative. WBC count has increased to 24.9. [facility] Medical History No pertinent past medical history Social History Household Members: None Household Members Other:: family Housing: Apartment Do you presently have visiting nurse or other home services: No Alcohol intake: current Alcohol intake frequency: holidays/special occasions only Patient Tobacco Use Status: Never used Tobacco e-Cigarette/Vaping Use: Never Used Substance Use Type: Marijuana service: No Review of Systems Const All systems reviewed & are unremarkable except as noted in HPI and below Reports no additional complaints Eyes Reports no additional complaints ENT Reports no additional complaints Card Reports no additional complaints Resp Reports no additional complaints GI Reports no additional complaints Reports as per HPI Musc Reports no additional complaints Skin/Breast Reports system reviewed and no additional complaints, except as documented Neuro Reports no additional complaints Psych Reports no additional complaints Endo Reports no additional complaints Link/Lymph Reports no additional complaints Aller/Immun Reports no additional complaints Telehealth Telehealth Telehealth Platform: [facility] Location of provider rendering services: practice address Location of patient: address on file Patient Identification confirmed using: Name, : Yes Telehealth method: video Patient verbally consented to treatment: Yes Patient verbally consented to billing insurance company: Yes Patient informed of any privacy concerns related to visit: Yes Results Reviewed Results Reviewed: Date of Service: 01/18/25 CLINICAL HISTORY: epididymo orchitis US scrotum with Doppler Comparison: US/SR - US SCROTUM - 10/19/24 08:44 EDT Technique: Real time sonographic imaging, including color Doppler and spectral analysis, was performed by the insole presser. Multiple civil rights representative static images were saved for review. Findings: Right testicle is normal in size and echotexture, 5.0 x 2.3 x 3.5 cm. No intratesticular lesion. Stable punctate calcification. Left testicle is normal in size and echotexture, 4.0 x 2.0 x 3.4 cm. No intratesticular lesion. Stable punctate calcification. Mildly increased vascular flow of bilateral testes, symmetric, normal arterial and venous spectral tracing of testicular parenchyma. Unremarkable epididymides, no epididymal hyperemia. Small left epididymal cyst 2-3 mm, of doubtful clinical significance. No hydroceles or varicoceles. Impression: Mildly hyperemic testicles bilaterally, uncertain etiology, may be related to environmental or lifestyle factors, symmetric isolated orchitis is unusual and felt to be less likely but can not be entirely excluded, please correlate clinically. Date of Service: 10/19/24 EXAMINATION: US SCROTUM HISTORY: Left testicular pain, swelling. COMPARISON: Comparison is made with the prior examination dated 09/30/2024. FINDINGS: Real-time grayscale ultrasound imaging of the scrotum was performed. Color and spectral Doppler analysis was also performed. RIGHT TESTICLE: The right testis measures 5.0 x 2.7 x 3.2 cm and demonstrates normal homogeneous echotexture. No masses are seen. The right testis demonstrates normal arterial and venous color Doppler and spectral waveforms. RIGHT EPIDIDYMIS: Normal in size, shape, and vascularity. LEFT TESTICLE: The left testis measures 4.5 x 3.5 x 3.9 cm and demonstrates normal homogeneous echotexture. No masses are seen. The left testis demonstrates normal arterial and venous spectral waveforms, but appears slightly hypervascular. LEFT EPIDIDYMIS: The left epididymis is enlarged and hyperemic cyst with epididymitis. VARICOCELE: None. HYDROCELE: No significant hydrocele is seen. OTHER COMMENTS: None. IMPRESSION: Findings consistent with left epididymoorchitis. Assessment & Plan Assessment & Plan (1) Epididymoorchitis: Code(s): N45.3 - Epididymo-orchitis Category: Medical Plan The patient reports he is doing wound denies any testicular pain. Ultrasound findings are clinically not significant. Testicles are within normal limits. Follow-up PRN Medications: Discontinued cefuroxime axetil Discontinued Reason: Patient Completed Course 500 mg PO BID 18 tabs 0RF doxycycline hyclate Discontinued Reason: Patient Completed Course 100 mg PO BID 18 caps 0RF Patient Instructions: The patient had an opportunity to ask questions regarding treatment plan. The patient expressed understanding and agreement with the above treatment plan. The patient is aware they should contact our office by phone for worsening of their current condition or the appearance of new symptoms. Compliance is encouraged with any medications and followup testing that is ordered. It is a privilege to be allowed the opportunity to participate in the urologic care of your patient. If you have any questions or concerns regarding treatment for the above conditions please do not hesitate to contact me. The office telephone contact is [phone]. This note is constructed in part using voice recognition software. While every effort has been made to ensure accuracy biological inspector errors may have been included. Yours sincerely, Daljit Swann MD Coding Level of Care Code Tele Est Pt Level 3 (15758) Diagnoses Epididymoorchitis N45.3
== END 2025-02-17 08:47 | disposition home or self-care (01) ==
LOC: HO.HUSH 08:18
PROVIDERS: Visit Provider Urology
DX: N45.3 Epididymo-orchitis (principal)
CPT/HCPCS: 99213